=== PATIENT | male | born 1970 | race Caucasian/White ===

== ENCOUNTER 2018-02-17 15:46 | Emergency (ER) | payer SELFPAY ==
--- NOTE | 2018-02-17 16:01 | ER Report ---
History and Physical Time Seen By MD: 16:01 (PRABHU GREEN DO) HPI/ROS CHIEF COMPLAINT: chest pain HISTORY OF PRESENT ILLNESS: Pt lives in [place] but had a job interview in [place]. PT took a [employer] to [place] and is now on his way back home via [place] bus. Pt started with substernal chest pressure one hour ago while sitting on the bus. Became diaphoretic with the chest pain. The combustion analyst called 911 and pt was brought to the hospital. Pt in route was given aspirin and nitro x2. Nitro took pts pain from 7 to 07/16. Pt states + mild sob. no nausea. Pt has hx of ND in 2013 and was placed on clonidine, asa and coumadin after the incident. Pt states he stopped all meds 2 yrs ago because he lost wt and felt better. Pt does not go to see doctors. Pts does not know his parents medical hx due to dad in [place] and mom commited suicide. Pt denies pain in legs. no leg swelling. pt does states the nitro gave him a headache. REVIEW OF SYSTEMS: Constitutional: No fever, no chills. Eyes: No discharge. ENT: No sore throat. Cardiovascular: + chest pain, no palpitations. Respiratory: No cough, + shortness of breath. Gastrointestinal: No abdominal pain, no vomiting. Genitourinary: No hematuria. Musculoskeletal: No back pain. Skin: No rashes, + diaphoretic Neurological: No headache. (PRABHU GREEN DO) Allergies: Coded Allergies: No Known Drug Allergies (Unverified , 02/17/18) Home Meds Reported Medications Methylphenidate Hcl (RITALIN) 5 Mg Tablet, 5 MG PO DAILY 02/17/18 Mirtazapine (REMERON) 15 Mg Tab.rapdis, 15 MG PO 02/17/18 Past Medical/Surgical History pmhx: htn, mi, adhd, depression (PRABHU GREEN DO) Reviewed Nurses Notes: Yes Old Medical Records Reviewed: Yes (PRABHU GREEN DO) Hx Smoking: No Hx Alcohol Use: No (PRABHU GREEN DO) Constitutional Vital Sign - Last 24 Hours 02/17/18 02/17/18 02/17/18 02/17/18 15:46 15:50 15:55 15:58 Temp 98.5 Pulse ??? 120 Resp 16 B/P (MAP) 155/117 (130) 136/99 136/99 (111) Pulse Ox 96 O2 Delivery Room Air 02/17/18 02/17/18 02/17/18 02/17/18 16:00 16:01 16:10 16:15 Pulse 118 Resp 26 B/P (MAP) 133/101 (112) 123/98 (106) Pulse Ox 95 O2 Flow Rate 2.0 02/17/18 02/17/18 02/17/18 02/17/18 16:16 16:30 16:31 16:45 Pulse 110 110 Resp 21 24 B/P (MAP) 106/71 (83) 128/87 (101) Pulse Ox 95 95 02/17/18 02/17/18 02/17/18 02/17/18 16:46 17:00 17:00 17:01 Pulse 100 128 ??? Resp 25 23 B/P (MAP) 128/87 (101) ???/??? (1985) Pulse Ox 95 94 O2 Delivery Room Air O2 Flow Rate 2 02/17/18 02/17/18 02/17/18 02/17/18 17:14 17:16 17:30 17:31 Pulse 97 ??? Resp 20 B/P (MAP) 132/83 (99) ???/??? (8947) Pulse Ox 96 02/17/18 02/17/18 02/17/18 02/17/18 17:45 17:50 17:54 18:00 Pulse 88 88 Resp 10 16 B/P (MAP) 133/92 (106) 133/92 (106) 126/97 (107) Pulse Ox 95 96 O2 Delivery Nasal Cannula O2 Flow Rate 2 02/17/18 02/17/18 02/17/18 02/17/18 18:05 18:15 18:20 18:30 Pulse 89 95 Resp 17 22 B/P (MAP) 147/99 (115) 134/94 (107) Pulse Ox 96 96 02/17/18 02/17/18 02/17/18 02/17/18 18:35 18:45 18:50 19:00 Pulse 98 85 Resp 13 23 B/P (MAP) 133/92 (106) 142/122 (129) Pulse Ox 95 94 02/17/18 02/17/18 02/17/1802/17/18 19:05 19:15 19:20 19:30 Pulse 93 83 Resp 22 21 B/P (MAP) 150/96 (114) 145/103 (117) Pulse Ox 94 02/17/18 02/17/18 02/17/18 02/17/18 19:35 19:45 19:50 20:00 Pulse 85 73 Resp 15 24 B/P (MAP) 138/90 (106) 130/84 (99) Pulse Ox 93 93 02/17/18 02/17/18 02/17/18 02/17/18 20:05 20:15 20:20 20:30 Pulse 101 68 Resp 23 28 B/P (MAP) 134/93 (107) 128/85 (99) Pulse Ox 93 95 02/17/18 02/17/18 02/17/18 02/17/18 20:35 20:45 20:50 21:00 Pulse 74 66 Resp 22 28 B/P (MAP) 128/87 (101) 134/86 (102) Pulse Ox 94 95 02/17/18 02/17/18 02/17/18 02/17/18 21:05 21:20 21:30 21:35 Pulse 69 71 ??? Resp 24 29 21 B/P (MAP) ???/??? (1322) Pulse Ox 92 02/17/18 02/17/18 02/17/18 02/17/18 21:45 21:50 22:00 22:05 Pulse ??? 76 Resp 28 28 B/P (MAP) ???/??? (4406) ???/??? (9490) 02/17/18 02/17/18 02/17/18 02/17/18 22:20 22:35 22:50 23:05 Pulse 71 73 70 72 Resp 8 18 22 23 02/17/18 02/17/18 02/17/18 02/18/18 23:20 23:25 23:55 00:00 Pulse 73 ??? 66 64 Resp 14 14 26 11 18 02/18/18 02/18/18 02/18/18 00:30 01:00 01:30 01:35 Pulse 71 69 73 70 Resp 19 18 16 14 02/18/18 02/18/18 02/18/18 02/18/18 01:50 02:05 02:20 02:35 Pulse 73 ??? 80 64 Resp 18 12 19 13 Pulse Ox 88 89 02/18/18 02/18/18 02/18/18 02/18/18 02:50 03:05 03:20 03:25 Pulse 61 64 61 59 Resp 21 27 16 24 Pulse Ox 89 88 89 88 02/18/18 02/18/18 02/18/18 02/18/18 03:40 03:55 04:10 04:25 Pulse 63 68 59 68 Resp 18 24 26 26 Pulse Ox 89 89 89 89 02/18/18 02/18/18 02/18/18 02/18/18 04:40 04:55 05:10 05:15 Pulse 63 60 61 67 Resp 14 17 15 17 Pulse Ox 90 89 89 93 02/18/18 02/18/18 02/18/18 02/18/18 05:30 05:45 06:00 06:15 Pulse 68 74 73 68 Resp 19 15 17 16 Pulse Ox 94 02/18/18 02/18/18 02/18/18 02/18/18 06:18 06:30 06:45 07:00 Pulse ??? 77 ??? B/P (MAP) 99/64 (76) 141/94 (110) Pulse Ox 91 90 (DILIP SHELL MD) Physical Exam General Appearance: The patient is alert, has no immediate need for airway protection and no signs of toxicity. Eyes: Pupils equal and round no pallor or injection, EOMI ENT: no pharyngeal erythema or exudates, Mucous membranes are moist Respiratory: There are no retractions, lungs are clear to auscultation. Cardiovascular: Regular rate and rhythm. pulses are equal and symmetrical Gastrointestinal: Abdomen is soft and non tender, no masses, bowel sounds normal, no guarding, no rigidity or rebound Neurological: Cranial nerves II-XII grossly intact, no sensory or motor loss Skin: Warm and dry, no rashes. Musculoskeletal: Neck is supple non tender, no vertebral tenderness Extremities are nontender, non swollen and have full range of motion. DIFFERENTIAL DIAGNOSIS: After history and physical exam differential diagnosis was considered for acs, acute mi, angina, pe, aortic dissection (YASMEENORA,PRABHU V DO) Medical Decision Making Data Points Result Diagram: 02/17/18 1540 02/17/18 1540 Laboratory Hematology Test 02/17/18 15:40 02/17/18 20:00 Red Blood Count 4.94 M/uL (4.00-5.60) Mean Corpuscular Volume 90.1 fL (80.0-96.0) Mean Corpuscular Hemoglobin 30.9 pg (26.0-33.0) Mean Corpuscular Hemoglobin Concent 34.3 g/dL (32.0-36.0) Red Cell Distribution Width 14.0 % (11.5-14.5) Mean Platelet Volume 10.1 fL (7.2-11.1) Neutrophils (%) (Auto) 60.6 % (39.4-72.5) Lymphocytes (%) (Auto) 28.7 % (17.6-49.6) Monocytes (%) (Auto) 9.0 % (4.1-12.4) Eosinophils (%) (Auto) 0.8 % (0.4-6.7) Basophils (%) (Auto) 0.9 % (0.3-1.4) Nucleated RBC Relative Count (auto) 0.1 /100WBC Neutrophils # (Auto) 5.4 K/uL (2.0-7.4) Lymphocytes # (Auto) 2.6 K/uL (1.3-3.6) Monocytes # (Auto) 0.8 K/uL (0.3-1.0) Eosinophils # (Auto) 0.1 K/uL (0.0-0.5) Basophils # (Auto) 0.1 K/uL (0.0-0.1) Nucleated RBC Absolute Count (auto) 0.01 K/uL Prothrombin Time 12.8 seconds (12.0-14.4) Prothromb Time International Ratio 0.96 Activated Partial Thromboplast Time 30 seconds (23-35) D-Dimer Quantitative (PE/DVT) 0.85 ug/ml (0-0.50) Sodium Level 141 mmol/L (137-145) Potassium Level 3.7 mmol/L (3.5-5.0) Chloride Level 101 mmol/L (98-107) Carbon Dioxide Level 22 mmol/L (22-30) Blood Urea Nitrogen 14 mg/dl (9-21) Creatinine 0.80 mg/dl (0.66-1.25) Glomerular Filtration Rate Calc > 60.0 Random Glucose 138 mg/dl (75-110) Calcium Level 10.2 mg/dl (8.4-10.2) Total Bilirubin 1.1 mg/dl (0.2-1.3) Aspartate Amino Transf (AST/SGOT) 36 U/L (0-35) Alanine Aminotransferase (ALT/SGPT) 74 U/L (0-56) Alkaline Phosphatase 97 U/L (0-126) Total Protein 8.9 g/dl (6.3-8.2) Albumin 5.0 g/dl (3.5-5.0) Troponin I < 0.012 ng/ml Chemistry Test 02/17/18 15:40 02/17/18 20:00 White Blood Count 8.9 k/uL (4.5-11.0) Red Blood Count 4.94 M/uL (4.00-5.60) Hemoglobin 15.2 g/dL (14.0-18.0) Hematocrit 44.5 % (42.0-52.0) Mean Corpuscular Volume 90.1 fL (80.0-96.0) Mean Corpuscular Hemoglobin 30.9 pg (26.0-33.0) Mean Corpuscular Hemoglobin Concent 34.3 g/dL (32.0-36.0) Red Cell Distribution Width 14.0 % (11.5-14.5) Platelet Count 264 K/uL (150-450) Mean Platelet Volume 10.1 fL (7.2-11.1) Neutrophils (%) (Auto) 60.6 % (39.4-72.5) Lymphocytes (%) (Auto) 28.7 % (17.6-49.6) Monocytes (%) (Auto) 9.0 % (4.1-12.4) Eosinophils (%) (Auto) 0.8 % (0.4-6.7) Basophils (%) (Auto) 0.9 % (0.3-1.4) Nucleated RBC Relative Count (auto) 0.1 /100WBC Neutrophils # (Auto) 5.4 K/uL (2.0-7.4) Lymphocytes # (Auto) 2.6 K/uL (1.3-3.6) Monocytes # (Auto) 0.8 K/uL (0.3-1.0) Eosinophils # (Auto) 0.1 K/uL (0.0-0.5) Basophils # (Auto) 0.1 K/uL (0.0-0.1) Nucleated RBC Absolute Count (auto) 0.01 K/uL Prothrombin Time 12.8 seconds (12.0-14.4) Prothromb Time International Ratio 0.96 Activated Partial Thromboplast Time 30 seconds (23-35) D-Dimer Quantitative (PE/DVT) 0.85 ug/ml (0-0.50) Glomerular Filtration Rate Calc > 60.0 Calcium Level 10.2 mg/dl (8.4-10.2) Total Bilirubin 1.1 mg/dl (0.2-1.3) Aspartate Amino Transf (AST/SGOT) 36 U/L (0-35) Alanine Aminotransferase (ALT/SGPT) 74 U/L (0-56) Alkaline Phosphatase 97 U/L (0-126) Total Protein 8.9 g/dl (6.3-8.2) Albumin 5.0 g/dl (3.5-5.0) Troponin I < 0.012 ng/ml Coagulation Test 02/17/18 15:40 Prothrombin Time 12.8 seconds Prothromb Time International Ratio 0.96 Activated Partial Thromboplast Time 30 seconds D-Dimer Quantitative (PE/DVT) 0.85 ug/ml (DILIP SHELL MD) EKG/Imaging EKG Interpretation sinus tach @ 110 with lad Imaging napd; no pe (PRABHU GREEN DO) ED Course/Re-evaluation Clinical Indication for ER IV: IV Access ED Course 02/17/2018 4:47:52 pm Pts chest pain resolved and blood pressure improved post nitro. PT d-dimer is positive. will repeat troponin at 4 hours alcides but will send for CTA for possible PE while awaiting labs 02/17/2018 5:34:01 pm Pt now states that he is depressed and is requesting to speak with [facility]. Will have [facility] come and see he patient when they are available to come down. 02/17/2018 5:54:[address] is negative for PE. PT awaiting his 8pm troponin draw. [facility] did state they will be down to speak with pt. Pt signed out to Dr. Shell pending second troponin. Decision to Disposition Date: Feb 17, 2018 (PRABHU GREEN DO) ED Course I reviewed this patient with Dr. Green at sign out at shift change and assumed care or this patient. Patient here with chest pain, which has now resolved. CT scan negative for pulmonary embolism. Currently awaiting a repeat troponin at 2000 hours, initial troponin and EKG are negative. Repeat EKG and Troponin were negative. Discussed with the patient regarding depression. He is wanting to be admitted for help with his depression. He is suicidal and is fairly certain that without help he would act out on thoughts. No definitive plan at this time. Very tearful while we are talking with a feeling of embarrassment as well as feeling hopeless. He is also very anxious about all this and asking for something to help with anxiety. He responded well to Ativan 0.5mg IV. Also gave Metoprolol tartrate 50mg oral dose to help with blood pressure. Behavioral health is on divert and cannot take him for admission. Currently exploring other options for the patient to get help with his depression and suicidal ideation. Medically cleared at this time for admission to a behavioral health facility once we find an accepting facility for him. [facility] in [place] has accepted the patient. We are waiting for daytime to arrange transport there. Decision to Disposition Date: Feb 18, 2018 Decision to Disposition Time: 03:12 (DILIP SHELL MD) Depart Departure Latest Vital Signs Vital Signs Date Time Temp Pulse Resp B/P (MAP) Pulse Ox O2 Delivery O2 Flow Rate FiO2 02/18/18 07:00 ??? 141/94 (110) 90 02/18/18 06:15 16 02/17/18 17:54 Nasal Cannula 2 02/17/18 15:55 98.5 (DILIP SHELL MD) Impression: Primary Impression: Chest pain Additional Impressions: Suicidal ideation Depression Condition: Improved Disposition: XFER TO [facility] Problem Qualifiers Primary Impression: Chest pain Chest pain type: unspecified Qualified Codes: R07.9 - Chest pain, unspecified Additional Impressions: Depression Depression Type: major depressive disorder Major depression recurrence: recurrent Active/Remission status: currently active Major depression episode severity: severe Psychotic features: without psychotic features Qualified Codes: F33.2 - Major depressive disorder, recurrent severe without psychotic features PRABHU GREEN DO Feb 17, 2018 16:01 DILIP SHELL MD Feb 17, 2018 18:13
[2018-02-17] MEDS ORDERED: ACETAMINOPHEN 325 MG TAB PO ONE (16:10)
[2018-02-17] MEDS ORDERED: NITROGLYCERIN 0.4 MG SUBL SL ONE (16:10)
[2018-02-17 16:19] LABS: PLATELET COUNT, AUTOMATED 264 K/uL (150-450)
[2018-02-17 16:51] LABS: INR 0.96
[2018-02-17] MEDS ORDERED: IOPAMIDOL 76% 75 ML INFUS BTL 75 ML ONE (16:58)
[2018-02-17] MEDS ORDERED: NS(*) 0.9% 50 ML BAG 50 ML ONE (16:58)
--- NOTE | 2018-02-17 17:13 | RADIOLOGY IMAGING REPORT ---
FACILITY: PATIENT NAME: Genaro Jain : 1970 MR: [id number] V: [id number] EXAM DATE: ORDERING PHYSICIAN: PRABHU GREEN TECHNOLOGIST: Location: [facility] [place] Patient: Genaro Jain : 1970 Visit/Account:[id number] Date of Sevice: 02/17/2018 CHEST SINGLE AP Indication: Chest pain.. Comparison: None available Findings: Cardiomediastinal silhouette and pulmonary vessels within normal limits. There is no focal infiltrate or lobar consolidation. No pneumothorax or pleural effusion. No nodule. Upper abdomen is unremarkable. No acute bony abnormality. IMPRESSION: 1. No acute cardiopulmonary process. Report Dictated By: Chance Sarah at 02/17/2018 5:09 PM Report E-Signed By: Chance Sarah at 02/17/2018 5:09 PM WSN:[id number]
--- NOTE | 2018-02-17 17:40 | RADIOLOGY IMAGING REPORT ---
FACILITY: [facility] - [place] PATIENT NAME: Genaro Jain : 1970 MR: [id number] V: [id number] EXAM DATE: ORDERING PHYSICIAN: PRABHU GREEN TECHNOLOGIST: Location: [facility] Patient: Genaro Jain : 1970 Visit/Account:[id number] Date of Sevice: 02/17/2018 CT angiogram chest with contrast Indication: Chest pain, tachycardia, elevated d-dimer. Comparison: None available. Technique: Axial CT images are obtained through the chest after administration of 75 mL Isovue 370 IV contrast. Reformatted coronal and sagittal images were reviewed as well as coronal MIP images. One of the following dose optimization techniques was utilized in the performance of this exam: auto mated exposure control; adjustment of the mA and/or kV according to the patient's size; or use of an iterative reconstruction technique. Specific details can be referenced in the facility's radiology C T exam operational policy. FINDINGS: No evidence of filling defect within the pulmonary vasculature to suggest pulmonary embolus. Heart is upper limits normal for size without pericardial effusion. The aorta shows no aneurysm or di ssection. The mediastinum and hilar regions show no enlarged lymph nodes or abnormal density. Lungs show no consolidation, pleural effusion, pneumothorax, discrete nodule or focal interstitial op acities. The airways are clear. Bony structures show no acute fractures or aggressive bony lesions. Chest wall shows no enlarged axil emigdio lymph nodes or masses. Limited views of the upper abdomen are unremarkable. IMPRESSION: 1. No evidence of pulmonary embolus. 2. No acute cardiothoracic abnormality Report Dictated By: Chance Sarah at 02/17/2018 5:27 PM Report E-Signed By: Chance Sarah at 02/17/2018 5:35 PM WSN:[id number]
[2018-02-17] MEDS ORDERED: MIRT-17 PO (18:03)
[2018-02-17] MEDS ORDERED: METH5TAB85 PO (18:05)
--- NOTE | 2018-02-17 18:24 | EKG ---
[place]AC[place]: [facility] [place] PATIENT NAME: IVON TORRES : [id number] MR: [id number] V: [id number] EXAM DATE: ORDERING PHYSICIAN: PRABHU GREEN TECHNOLOGIST: MAGDI Test Reason : CHEST PAIN Blood Pressure : / mmHG Vent. Rate : 108 BPM Atrial Rate : 108 BPM P-R Int : 146 ms QRS Dur : 072 ms QT Int : 316 ms P-R-T Axes : 032 003 057 degrees QTc Int : 423 ms Sinus tachycardia Borderline left axis Possible Left atrial enlargement Poor R wave progression anteriorly Abnormal ECG No previous ECGs available Confirmed by SLOANE RING ([id number]) on 02/18/2018 3:38:43 AM Referred By: NORMA Confirmed By:SLOANE RING
[2018-02-17] MEDS ORDERED: LORazepam 2 MG/ML VIAL IVP ONE (19:05)
[2018-02-17] MEDS ORDERED: METOPROLOL TART 50 MG TAB PO ONE (19:05)
--- NOTE | 2018-02-17 20:42 | EKG ---
FACILITY: [facility] [place] PATIENT NAME: IVON TORRES : [id number] MR: [id number] V: [id number] EXAM DATE: ORDERING PHYSICIAN: DILIP HICKMAN TECHNOLOGIST: HOMERO Jasso Reason : Blood Pressure : / mmHG Vent. Rate : 077 BPM Atrial Rate : 077 BPM P-R Int : 158 ms QRS Dur : 072 ms QT Int : 364 ms P-R-T Axes : 042 -07 017 degrees QTc Int : 411 ms Sinus rhythm Left axis Possible Left atrial enlargement Poor R wave progression anteriorly Abnormal ECG Confirmed by SLOANE RING ([id number] on 02/18/2018 3:39:31 AM Referred By: Confirmed By:SLOANE RING
[2018-02-18 07:00] VITALS: BP 141/94
[2018-02-18] MEDS ORDERED: LORazepam 0.5 MG TAB PO ONE (07:35)
[2018-02-18] MEDS ORDERED: LORazepam 0.5 MG TAB ONE (08:43)
== END 2018-02-18 09:01 | disposition short-term general hospital (02) ==
LOC: ER 15:51
DX: R07.9 Chest pain, unspecified (principal); R45.851 Suicidal ideations; F33.2 Major depressive disorder, recurrent severe without psychotic features; R94.31 Abnormal electrocardiogram [ECG] [EKG]
CPT/HCPCS: 36415; 71045; 71275; 84484; 85025; 85379; 85610; 85730; 93005; 96374; 99285; J2060; J7050; Q9967; 82040; 82247; 82310; 82374; 82435; 82565; 82947; 84075; 84132; 84155; 84295; 84450; 84460; 84520

== ENCOUNTER → 2018-02-17 | Outpatient (CLI) | payer SELFPAY ==
[~2018-02-17] MED LIST: METH5TAB85 PO; MIRT-17 PO
== END ==
LOC: AMB 15:28
PROVIDERS: ATTEND Nurse Practitioner
DX: R07.9 Chest pain, unspecified (principal); R11.2 Nausea with vomiting, unspecified; R10.13 Epigastric pain
CPT/HCPCS: A0425; A0427

== ENCOUNTER → 2018-02-18 | Outpatient (CLI) | payer SELFPAY | LOC: AMB 08:52 | PROVIDERS: ATTEND Nurse Practitioner | DX: R45.851 Suicidal ideations (principal) | CPT/HCPCS: A0425; A0428 ==